=== PATIENT | female | born 1960 | race African-American/Black ===

== ENCOUNTER 2016-04-13 21:05 | Emergency (ER) | payer MEDICAID, OTHER ==
[~2016-04-13] VITALS: Ht 180.3 cm; Wt 77.6 kg
[~2016-04-13 21:05] MED LIST: ACETAMINOPHEN500 M3 ORAL; ALLEGRA-D 12 H1 EACH PO; AMLODIPINE BESY10 MG ORAL; BACLOFEN10 MG ORAL; CIPROFLOXACIN500 M2 ORAL; IBUPROFEN800 MG ORAL; LISINOPRIL10 MG ORAL; NORCO 5-325 TA1 EACH ORAL; TRAMADOL HCL50 MG ORAL
[2016-04-13 21:49] VITALS: BP 149/93
--- NOTE | 2016-04-13 21:53 | Emergency Room Report ---
History of Present Illness General Chief Complaint: Upper Respiratory Illness Source: Patient Present Illness HPI Patient was diagnosed with bronchitis on March 27. She has run out of her inhaler, prednisone and cough syrup. She took a course of azithromycin. The phlegm is improved but still yellowish color. She denies any fevers or chills. She denies chest pain. There is no nausea vomiting diarrhea or rashes. She got a flu shot this year. 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, lives in [place] Reviewed Nursing Documentation: PMH: Agreed, PSxH: Agreed Nursing Documentation-PMH Hx Hypertension: Yes Hx COPD: No - Bronchitis Review of Systems All Other Systems: negative except mentioned in HPI Physical Exam Vital Signs Date Time Temp Pulse Resp B/P Pulse Ox O2 Delivery O2 Flow Rate FiO2 04/13/16 21:28 99.0 86 18 153/91 98 Room Air Sp02 EP Interpretation: reviewed, normal General Appearance: well appearing, no apparent distress Head: normocephalic, atraumatic ENT: hearing grossly normal, normal voice Neck: full range of motion, supple Respiratory: lungs clear, normal breath sounds, no respiratory distress, speaking full sentences Cardiovascular #1: regular rate, rhythm Cardiovascular #2: 2+ radial (L) Musculoskeletal: digits/nails normal, gait/station normal, normal range of motion Neurologic: alert, normal gait, grossly normal Psychiatric: mood/affect normal Skin: no rash Medical Decision Making Diagnostic Impression: Primary Impression: Upper respiratory infection Qualified Codes: J06.9 - Acute upper respiratory infection, unspecified ER Course The patient presented with persistent cough after being treated with azithromycin. She states she's had a flu shot. She denies fever or chills at this time. She is out of her inhaler and prednisone. She is asking for medication refill. Clinically she does not have pneumonia. Her lungs are clear. She is stable for outpatient observation and treatment and will have medication refilled. Last Vital Signs Date Time Temp Pulse Resp B/P Pulse Ox O2 Delivery O2 Flow Rate FiO2 04/13/16 21:49 98.8 88 19 149/93 100 Room Air Status: unchanged Disposition: HOME, SELF-CARE Condition: Stable Scripts Prednisone* (PREDNISONE*) 10 Mg Tablet 10 MG ORAL DAILY, #22 TAB 0 Refills 4 po QD X 2, 3 po QD X 2, 2 po QD X 2, 1 po QD X 4 Prov: Adan Young M.D. 04/13/16 Codeine/Promethazine Hcl* (PROMETHAZINE-CODEINE SYRUP*) 118 Ml Syrup 5 ML ORAL Q6H Y for For Cough, #60 ML 0 Refills Prov: Adan Young M.D. 04/13/16 Albuterol Sulfate* (ALBUTEROL SULFATE MDI*) 8.5 Gm Hfa.aer.ad 2 PUFF INH Q4H, #1 INH 0 Refills Prov: Adan Young M.D. 04/13/16 Adan Young M.D. Apr 13, 2016 21:53
[2016-04-13] MEDS ORDERED: ALBUTEROL SULF8.5 GM INH (21:55)
[2016-04-13] MEDS ORDERED: PROMETHAZINE-C118 M1 ORAL (21:55)
[2016-04-13] MEDS ORDERED: PREDNISONE10 MG ORAL (21:55)
[2016-04-13 22:05] VITALS: BP 149/93
== END 2016-04-13 22:05 | disposition home or self-care (01) ==
LOC: EMR 21:57
DX: J06.9 Acute upper respiratory infection, unspecified (principal); J44.9 Chronic obstructive pulmonary disease, unspecified; I10 Essential (primary) hypertension; Z76.0 Encounter for issue of repeat prescription
CPT/HCPCS: 99284

== ENCOUNTER 2018-07-29 10:59 | Emergency (ER) | payer MEDICAID, OTHER ==
[~2018-07-29] VITALS: Ht 180.3 cm; Wt 81.6 kg
[~2018-07-29 10:59] MED LIST changes: +ALBUTEROL SULF8.5 GM INH; +PREDNISONE10 MG ORAL; +PROMETHAZINE-C118 M1 ORAL
--- NOTE | 2018-07-29 11:34 | Emergency Room Report ---
History of Present Illness General Chief Complaint: Headache Source: Patient Present Illness HPI Patient presents with complaints of headache off-and-on for the past several days She has had headaches in the past however she is going to be traveling soon and wanted to get checked Patient has history of hypertension Takes medications Patient also complained that she felt a small on been the right inguinal upper thigh area This was previously and the area appeared to be larger however it appears to be getting smaller It is not tender with palpation denies any fevers Denies any vaginal discharge denies any chest pain or shortness of breath denies any focal weakness denies any visual changes Allergies: Coded Allergies: No Known Allergies (Unverified , 01/19/14) Patient History Past Medical History: see triage record Pertinent Family History: none Now: No Reviewed Nursing Documentation: PMH: Agreed; PSxH: Agreed Nursing Documentation-PMH Past Medical History: No History, Except For Hx Hypertension: Yes Hx COPD: No - Bronchitis Review of Systems All Other Systems: negative except mentioned in HPI Physical Exam Vital Signs Date Time Temp Pulse Resp B/P (MAP) Pulse Ox O2 Delivery O2 Flow Rate FiO2 07/29/18 11:04 98.1 76 19 142/92 98 Room Air Sp02 EP Interpretation: reviewed, normal General Appearance: well appearing, no apparent distress Head: normocephalic, atraumatic Eyes: bilateral eye PERRL, bilateral eye EOMI ENT: hearing grossly normal, normal pharynx, TMs + canals normal, uvula midline Neck: full range of motion, supple, no meningismus, no bony tend Respiratory: lungs clear, normal breath sounds, no rhonchi, no respiratory distress, no retraction, no accessory muscle use Cardiovascular #1: normal peripheral pulses, regular rate, rhythm, no edema, no gallop, no JVD, no murmur Gastrointestinal: normal bowel sounds, non tender, soft, no mass, no organomegaly, non-distended, no guarding, no hernia, no pulsatile mass, no rebound Genitourinary: no CVA tenderness Musculoskeletal: normal inspection Neurologic: oriented x3, responsive, 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, motor strength/ tone normal, sensory intact Psychiatric: mood/affect normal Skin: warm/dry, other - There is a small palpable circular region right upper medial thigh, there is some surrounding mild ecchymosis, patient reports that this is significantly improved from previous, no obvious dermatomal spread no obvious fluctuance Lymphatic: normal inspection, no adenopathy Medical Decision Making Diagnostic Impression: Primary Impression: Headache Additional Impression: Hematoma ER Course Given the patient's history and presentation multiple differentials and consideration including but not limited to neurological cardiac, cardiopulmonary , infectious pathology patient has a benign neurological exam I did not feel patient met criteria for acute imaging Blood pressure here as well appropriate The area and the right upper thigh area appears to be possibly related to hematoma versus other no obvious acute pathology is seen or appreciated and patient stable for close follow-up Last Vital Signs Date Time Temp Pulse Resp B/P (MAP) Pulse Ox O2 Delivery O2 Flow Rate FiO2 07/29/18 11:04 98.1 76 19 142/92 98 Room Air Status: unchanged Disposition: HOME, SELF-CARE Condition: Stable Additional Instructions: Patient is provided with the discharge instructions notified to follow up with primary doctor in the next 2-3 days otherwise return to the er with any worsening symptoms. Please note that this report is being documented using [employer] technology. This can lead to erroneous entry secondary to incorrect interpretation by the dictating instrument. Lobo Barry DO July 29, 2018 11:34
[2018-07-29 12:02] VITALS: BP 142/92
--- NOTE | 2018-07-29 12:04 | NUR ---
ER DISCHARGE NOTE: Patient is cleared to be discharged per ERMD, pt is aox4, on room air, with stable vital signs. pt was given dc and prescription instructions, pt was able to verbalize understanding, pt is able to ambulate with steady gait. pt took all belongings.
[2018-07-29 12:05] VITALS: BP 142/92
== END 2018-07-29 12:07 | disposition home or self-care (01) ==
LOC: EMR 11:50
DX: R51 Headache (principal); I10 Essential (primary) hypertension
CPT/HCPCS: 99281